=== PATIENT | female | born 1995 | race Caucasian/White ===

== ENCOUNTER 2018-10-24 05:26 | Inpatient (IN) | payer MEDICAID ==
--- NOTE | 2018-10-23 20:20 | PDGENHP ---
History and Physical - Chief Complaint LEFT HIP PAIN - History of Present Illness Diagnosis: 1. 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 ~Jose Denjoys hiking, running. Charla's~left~hip pain started 2 years ago, with~no~recalled trauma or injury, and with~little~previous complaints~(4 years ago).~Jose Dhas~a known history of hip dysplasia. She was referred by Dr. Fernández's office for further evaluation and treatment. She has a previous L hip surgical history~(3 previous procedures)~for a bone cyst and compression screw fixation ([id number] - Dr. Shaggy Ballesteros at [facility]). Presentation today is of~anterior~left~hip pain deep inside. ~The hip~does~wake her~at night and~does~click and catch on~her. Sitting~can be uncomfortable~for her.~Jose Ddoes~report suffering from lower back pain episodes, which started after her hip symptoms.~ Jose Dhas~participated in physical therapy (x6-8 months)~and has~tried other conservative measures including dry needling, chiropractor.~She~has not~ received sufficient symptomatic improvement. Jose Dhas~utilized medication for pain management, including NSAID and OTC acetaminophen.~Jose Dhas used medication daily for 2 years.~ Jose Ddenies issues with the right~hip, but does have popping. Jose Dunderstands that~tara~has a hip and pelvis problem which should be researched and wishes to get a better understanding of~her~hip status, followed by an establishment of a treatment strategy, hoping~tara~would be able to get back to~her~well being active life. History: Past medical history:~~ Patient~~has a past medical history of Asthma and Bleeding disorder (HC code).~~ Von Willebrand's (possible, unsure if confirmed diagnosis, doesn't think she required any treatment with other surgeries) Relevant familial history:~Mother - von Willebrands Past surgical history:~ No. Surgery Anesthesia Year Outcome 1 L hip~hardware removal General 2016 No complications 2 Revision curettage, grafting, fixation General ?2015 No complications 3 L hip bone cyst curettage, grafting, fixation General 2014 No complications Jose Ddenies problematic issues with general anesthesia in the past. I have reviewed, verified and agree with the past medical, surgical, family and social history. Current Medications:~has a current medication list which includes the following prescription(s): norgestimate-ethinyl estradiol and albuterol. ALLERGIES:~has No Known Allergies. Objective: Physical Examination: Jose Dis 5~feet~5~inches tall and weighs~150~Lbs. Shoe size~8.5. Jose Dis AAO x3; she~is well-nourished, in NAD. Skin is warm and dry. ~ Breathing is non-labored. ~CV with RRR by pulse. Abdomen is soft, NTND. Currently,~she~walks with a~normal~gait. Trendelenburg sign is~negative~and proprioception~is normal,~both~sides. She~presents~with mild~signs of joint laxity.~Beightons Score:~3 (elbows, L pinky) Lower spine examination is~negative~for sciatic or femoral nerve irritation with negative~SLR &~femoral stretch tests. Range of motion of the spine is normal~for flexion, extension, and rotations,~with~minimal~associated pain~in extension. Strength, Sensation and pulses are~normal -~bilaterally Ankles and knees exams are~normal~and~no~mal-alignment is evident.~ She~has~no leg length discrepancy. Thigh circumference is~symmetric~with no evidence for muscle atrophy~on both~ sides. Hip ROM (degrees): FL ER At 90~hip FL IR At 90~hip FL AB AD EX IR Neutral hip ER Neutral hip R 105 50 15 45 5 5 45 40 L 105(pain) 50 15(pain) 45 5 5 45 40 Specific hip and pelvis tests: Impingement Test SHANIA Roll Add. Longus R Negative Negative Negative Negative L +++ +++ +++ ++ Glut. Med ITB Posterior Imp R Negative 5/5 strength Negative 5/5 strength Negative L Negative 5/5 strength Negative 5/5 strength +++~(anterior) Squeeze test measured~normal Bony Symphysis pubis is~pain free~to touch while concentric activity of the rectus abdominis, does not~produce pain at its insertion. Ilio Psos specific tests are~positive for pain during cycling for~the left hip~ and remarkable for non painful snap HF has~pain~the left hip. Mild anterior~capsule tenderness left hip Greater trochanteric burse is~pain free~on both hips. Piriformis tests: FAIR is~negative,~with no~local signs of neuritis related to sciatic nerve. SIJs examination is~mildly painful L sides~with~normal~SHANIA in relation and local tenderness. Hamstrings tests are~negative~tendinopathy both hips. On a daily basis, the following percentages reflect~Charla's overall total pain : Deep hip:~80% Adductor tendons:~20% Imaging: Radiology studies which I~have personally reviewed, analyzed and measured are below: XR: AP of the hip and pelvis: Performed in a~good~technique Coccyx to pubic symphysis distance~0.9~cm. 0~degrees caudal/cephal [place]~Lines are preserved. Minimal~Pathological signs are seen in the Symphysis Pubis.~ No~Pathological signs are seen at the Ischial~tuberosity. ~ Specific measurements show: NSA~ LCE Sourcil~Angle Sharp's angle Lat. Cam Lat. Pincer C.Over~sign Head~Coverage % ATDmm R 129 19 8 43 Neg Neg Neg 74% 23.6 L 128 19 10 48 Neg Neg Neg 66% 25.0 Pos. wall sign ISS NAD ~~Dysplasia Comments R Negative Negative 16.0~mm ++ L Negative Negative 15.0~mm +++ Compression screw in femoral head/neck Sclerosis Sup. Lat. OA Cysts Joint Space-WBZ Joint Space-Medial R Negative Negative Negative 4.2~mm 4.1~mm L Negative Negative Negative 3.9~mm 3.2~mm X Table lateral: Anterior cam lesion is~seen~on both hips. Alpha Angle: ~ Right~60~degrees Left~63~degrees CT / 3D:~ 04/07/18 Right hip: Lateral center edge angle: 20 degrees Anterior center edge angle: 44 degrees Equatorial acetabular version angle: 21 degrees anteverted. Cranial acetabular version angle: 13 degrees anteverted. Femoral neck shaft angle: 131 degrees Femoral neck version angle: Anteverted 3 degrees Femoral shaft torsion angle: +19 degrees Left hip: Lateral center edge angle: 22 degrees Anterior center edge angle: 44 degrees Equatorial acetabular version angle: 22 degrees anteverted. Cranial acetabular version angle: 15 degrees anteverted. Femoral neck shaft angle: 138 degrees Femoral neck version angle: Retroverted 5 degrees Femoral shaft torsion angle: +5 degrees Impression and plan:~ Charla~is a~22 y.o.~active female~suffering from~Left~Hip Dyplasia~and~ Femoroacetabular impingement (QUINTEN) Cam type~causing significant disability to~ her~and altering~her~sport and life activities. Physical examination, imaging, and~her~story correspond with the diagnosis mentioned above. I explained that hip dysplasia is a condition wherein the hip joint has excessive play~and instability due to a variety of factors, including the depth and adequacy of the socket, the orientation of the femur bone, and ligament laxity around the hip joint. Dysplasia ranges in severity from borderline to stiven, with treatment options being specific to the specific nature of the problem. Left untreated, the instability in the hip joint can cause progressive tearing of the labrum and deterioration of the surface cartilage, ultimately resulting in progressive osteoarthritis of the hip. I explained that femoroacetabular impingement (QUINTEN - Cam type) arises due to a bony or soft tissue conflict between the femur (ball) and acetabulum (socket) caused by an abnormality in the shape of the femoral head and neck. Over time, repetitive impingement can result in damage to the labrum and adjacent surface cartilage within the socket, ultimately giving rise to progressive osteoarthritis of the hip. I explained that although a labral tear can be a source of pain, it is rarely the root of the problem and typically occurs secondary to an underlying abnormality in the shape and mechanics of the hip joint. I reviewed conservative treatment options for Dysplasia and QUINTEN including activity modification to avoid positions of impingement or instability, physical therapy, non-steroidal anti-inflammatory medications, and various injections (corticosteroid and PRP) aimed at reducing inflammation in the hip joint or/and preventing dynamic instability and impingement. PRP injections may promote healing and reduce symptoms in certain cases but it will not repair chronically damaged tissue. Although these measures may help to buy time~and reduce current level of symptoms, they are not a definitive solution to the problem given the underlying abnormality in the shape of the hip joint. Patients who have failed conservative management and continue to experience symptoms are candidates for definitive surgical treatment, which may consist of hip arthroscopy alone or in combination with more invasive bony realignment procedures of the hip socket and/or femur called periacetabular osteotomy (SHAKIR) or derotational femoral osteotomy (DFO). Hip arthroscopy typically includes treating the labrum with either repair or reconstruction of the torn labrum; as well as addressing the underlying abnormalities by restoring the normal shape to the hip joint. If the cartilage is damaged a Microfracture surgical procedure may also be necessary to help stimulate the growth of fibrocartilage. If a patient requires a labral reconstruction or a Microfracture, the initial rehabilitation from the surgery may take longer, but the ferry terminal agent results are typically favorable. I reviewed the technical aspects of periacetabular osteotomy (SHAKIR) including risks, benefits, and expected course of recovery. Charla understands that SHAKIR is an inpatient procedure carried out through two medium sized incisions on the front and back of the hip joint. The hip socket is cut, realigned, and stabilized with 2 3 internal screws. Risks include infection, bleeding, injury to nearby nerves or vessels, stiffness, persistent pain, instability, failure of bony healing, implant related complications, and venous thromboembolic disease. Rarely, revision surgery may be required to address these problems. Risks, potential complications, side effects and recovery from surgical procedure were discussed in length. We explained how this surgery is an open procedure, and though patients tend to do well in the long-term, it involves significant pain in the first 2-4 weeks post-op and a rather lengthy rehab. Overall recovery takes approximately 6 12 months depending on the extent of damage and degree of repair. Charla understands that she will undergo hip arthroscopy 1 week prior to the SHAKIR to address damage inside the hip joint. Charla understands that hip arthroscopy and SHAKIR are two separate procedures that are best performed one week apart, with the arthroscopy commencing first to "tighten up" any pathology evident in the hip joint (labral repair, etc.) and the SHAKIR open procedure occurring 7-10 days later to realign the acetabulum. Jose Dwill review the info presented. In order to better evaluate the soft tissues and cartilage of the hip joint, I will order an MRI scan~with metal artifact reduction sequence.~ Jose Dis going to contact us after completing her~imaging studies. Jose Dwill talk with our medical surgical tech about possible surgery dates, understanding that she should coordinate hip arthroscopy with Dr. Fernández one week prior to her SHAKIR with us. Jose Dis happy with this plan. I have also supplied~her~with handouts, outlining the expected surgical treatment and rehab involved. I wish~CharlaKaylaall the best, ~~ Lesley Granados MD History Information - Allergies/Home Medication List Allergies/Adverse Reactions: No Known Allergies Allergy (Verified 10/13/18 11:16) Home Medications: Acetaminophen [Tylenol 325mg (*)] 325 mg PO Q6 PRN 10/13/18 [Last Taken Unknown] Albuterol [Proventil Inhaler HFA (*)] 1 - 2 puffs IH Q4H PRN 10/13/18 [Last Taken Unknown] Etonogestrel [Nexplanon] 68 mg SQ .[id number] 10/13/18 [Last Taken Unknown] Herbals/Supplements -Info Only 1 ea PO DAILY 10/13/18 [Last Taken Unknown] I have personally reviewed and updated: medical history - Social History Smoking Status: Never smoked Review of Systems Review of Systems: Physical Exam Physical Exam:
[2018-10-24] MEDS ORDERED: ACETAMINOPHEN 500 MG TAB PO ONE (05:55)
[2018-10-24] MEDS ORDERED: TRANEXAMIC ACID 1,000 MG in NS 100 ML IV ONE (05:55)
[2018-10-24] MEDS ORDERED: SCOPOLAMINE HYDROBROMIDE 1 MG/3 DAYS PATCH TD ONE (05:55)
[2018-10-24] MEDS ORDERED: ceFAZolin 2 GM/DEXTROSE 100 ML IV ONE (05:55)
[2018-10-24] MEDS ORDERED: PREGABALIN 150 MG CAP PO ONE (05:55)
[2018-10-24] MEDS ORDERED: MIDAZOLAM 2 MG/2 ML VIAL IVP ONE (06:23)
[2018-10-24] MEDS ORDERED: morphINE PF 5 MG/10 ML INJ ONE (06:27)
[2018-10-24] MEDS ORDERED: DEXAMETHASONE 4 MG/ML VIAL ONE (06:28)
[2018-10-24] MEDS ORDERED: PROPOFOL 200 MG/20 ML VIAL ONE ×3 (06:28→09:29)
[2018-10-24] MEDS ORDERED: LIDOCAINE 2% 2 ML INJ ONE (06:28)
[2018-10-24] MEDS ORDERED: ROCURONIUM 50 MG/5 ML VIAL ONE (06:28)
[2018-10-24] MEDS ORDERED: ONDANSETRON 4 MG/2 ML VIAL ONE (06:28)
[2018-10-24] MEDS ORDERED: fentaNYL 100 MCG/2 ML INJ ONE ×3 (06:29→12:59)
--- NOTE | 2018-10-24 06:52 | PDANEPAE ---
ANE Past Medical History - Cardiovascular History Hx Hypertension: No Hx Arrhythmias: No Hx Chest Pain: No Hx Coronary Artery / Peripheral Vascular Disease: No Hx CHF / Valvular Disease: No Hx Palpitations: No - Pulmonary History Hx COPD: No Hx Asthma/Reactive Airway Disease: No Hx Recent Upper Respiratory Infection: No Hx Oxygen in Use at Home: No Hx Sleep Apnea: No Sleep Apnea Screening Result - Last Documented: Negative - Neurologic History Hx Cerebrovascular Accident: No Hx Seizures: No Hx Dementia: No - Endocrine History Hx Diabetes: No - Renal History Hx Renal Disorders: No - Liver History Hx Hepatic Disorders: No - Neurological & Psychiatric Hx Hx Neurological and Psychiatric Disorders: No - Cancer History Hx Cancer: No - Congenital Disorder History Hx Congenital Disorders: No - GI History Hx Gastrointestinal Disorders: No - Other Health History Other Health History: wears glasses - Chronic Pain History Chronic Pain: Yes (left hip) - Surgical History Prior Surgeries: bone cyst removed from left femoral head x2. hardware removed except for 1 bolt ANE Review of Systems Review of Systems: - Exercise capacity METS (RN): 4 METS ANE Patient History - Allergies Allergies/Adverse Reactions: No Known Allergies Allergy (Verified 10/13/18 11:16) - Home Medications Home Medications: Acetaminophen [Tylenol 325mg (*)] 325 mg PO Q6 PRN 10/13/18 [Last Taken 10/23/18 ] Albuterol [Proventil Inhaler HFA (*)] 1 - 2 puffs IH Q4H PRN 10/13/18 [Last Taken 07/26/18] Etonogestrel [Nexplanon] 68 mg SQ .[id number] 10/13/18 [Last Taken 02/01/17] Herbals/Supplements -Info Only 1 ea PO DAILY 10/13/18 [Last Taken 10/10/18] - NPO status NPO Since - Liquids (Date): 10/23/18 NPO Since - Liquids (Time): 22:30 NPO Since - Solids (Date): 10/24/18 NPO Since - Solids (Time): 18:30 - Smoking Hx Smoking Status: Never smoked - Family Anes Hx Family Hx Anesthesia Complications: none ANE Labs/Vital Signs - Vital Signs Blood Pressure: 127/76 Heart Rate: 97 Respiratory Rate: 20 O2 Sat (%): 96 Height: 165.1 cm Weight: 72.575 kg ANE Physical Exam - Airway Neck exam: FROM Mallampati Score: Class 2 Mouth exam: normal dental/mouth exam - Pulmonary Pulmonary: no respiratory distress, no rales or rhonchi, clear to auscultation - Cardiovascular Cardiovascular: regular rate and rhythym, no murmur, rub, or gallop - ASA Status ASA Status: I ANE Anesthesia Plan Anesthesia Plan: general endotracheal anesthesia, spinal (Duramorph Spinal for POPC)
--- NOTE | 2018-10-24 06:53 | POSTANESTH ---
Post Anesthetic Evaluation Cardiovascular Status: Normal, Stable Respiratory Status: Normal, Stable Level of Consciousness/Mental Status: Can Participate in Eval Pain Control: Adequate, Prn Tx Ordered Nausea/Vomiting Control: Adequate, Prn Tx Ordered Complications Possibly Related to Anesthesia: None Noted
[2018-10-24] MEDS ORDERED: CITRATE DEXTROSE SOLN 500 ML BAG ONE (07:03)
[2018-10-24] MEDS ORDERED: NALOXONE HCL 0.4 MG/ML INJ IVP PRN ×3 (07:56→12:24)
[2018-10-24] MEDS ORDERED: PHENYLEPHRINE HCL 100 MCG/ML SYR ONE ×3 (08:02→11:11)
[2018-10-24] MEDS ORDERED: ACETAMINOPHEN 500 MG TAB PO PRN (08:46)
[2018-10-24] MEDS ORDERED: PROMETHAZINE HCL 25 MG/ML INJ IVP PRN (08:46)
[2018-10-24] MEDS ORDERED: LR 500 ML IV PRN (08:46)
[2018-10-24] MEDS ORDERED: NS 500 ML IV PRN (08:46)
[2018-10-24] MEDS ORDERED: oxyCODONE IR 5 MG TAB PO PRN (08:46)
[2018-10-24] MEDS ORDERED: MEPERIDINE 25 MG/0.5 ML AMP IVP PRN (08:46)
[2018-10-24] MEDS ORDERED: ALBUTEROL 3 ML DEYVIAL IH PRN (08:46)
[2018-10-24] MEDS ORDERED: METOCLOPRAMIDE 10 MG/2 ML VIAL IVP PRN (08:46)
[2018-10-24] MEDS ORDERED: fentaNYL 100 MCG/2 ML INJ IVP PRN (08:46)
[2018-10-24] MEDS ORDERED: ONDANSETRON 4 MG/2 ML VIAL IVP PRN ×2 (08:46→12:23)
[2018-10-24] MEDS ORDERED: HYDROmorphONE/DILAUDID 1 MG/ML INJ IVP PRN (08:46)
[2018-10-24] MEDS ORDERED: PHENYLEPHRINE HCL 100 MCG/ML SYR IVP PRN (08:46)
[2018-10-24] MEDS ORDERED: ceFAZolin 1 GM VIAL ONE ×2 (10:16→10:17)
[2018-10-24] MEDS ORDERED: LACTULOSE 20 GM/30 ML UDCUP PO PRN (12:23)
[2018-10-24] MEDS ORDERED: MAGNESIUM HYDROXIDE 30 ML UDCUP PO PRN (12:23)
[2018-10-24] MEDS ORDERED: ONDANSETRON DISINTEGRATING 4 MG TAB PO PRN (12:23)
[2018-10-24] MEDS ORDERED: ACETAMINOPHEN 325 MG TAB PO PRN (12:23)
[2018-10-24] MEDS ORDERED: BISACODYL 10 MG SUPP PR PRN (12:23)
[2018-10-24] MEDS ORDERED: POLYETHYLENE GLYCOL 3350 17 GM PKT PO PRN (12:23)
[2018-10-24] MEDS ORDERED: diphenhydrAMINE 25 MG CAP PO PRN (12:24)
[2018-10-24] MEDS ORDERED: oxyCODONE IR 15 MG TAB PO PRN (12:25)
[2018-10-24] MEDS ORDERED: ALBUTEROL 60 PUFFS/8 GM MDI IH PRN (12:26)
[2018-10-24] MEDS ORDERED: ACETAMINOPHEN 500 MG TAB ONE (12:45)
[2018-10-24] MEDS ORDERED: oxyCODONE IR 5 MG TAB ONE (12:45)
[2018-10-24] MEDS: oxyCODONE IR 5 MG TAB PO SCH ×3 (15:21→21:43)
[2018-10-24] MEDS: NAPROXEN SODIUM 220 MG TAB PO SCH ×2 (16:13→21:42)
--- NOTE | 2018-10-24 18:10 | PDMN ---
Medical Necessity Medical necessity: Pt meets IP criteria per PA & MCG; est los >2 mn for s/p L Periacetabular Osteotomy (cpt 51465); admit for further monitoring, Dilaudid HOLE FILLER , Hospitalist consult & therapies; per H&P & order 10/24/18
--- NOTE | 2018-10-24 19:30 | SUROPNOTE ---
MELYSSA Operative Report - Surgery Surgery was performed at [facility] on~10/24/18~ Diagnosis:~Left 1. Hip Acetabular Dysplasia ~ Operation: Left~Chiqui Acetabular Osteotomy (SHAKIR) Surgeon: Destin Jacobo MD Mortgage Processing Clerk:~~Lesley thakkar MD Anesthetic: General + spinal Procedure: General anesthetic. Antibiotics given. Cell saver in use. Fluoroscopy. Phase 1: Position lateral, diagonal skin incision between ischial tuberosity and greater trochanter as for posterior hip approach. Blunt split of glut max fibers. Identification of fat pad overlying sciatic nerve. Exposure of sciatic nerve under fat pad, gently retracting it away-medially to ischial tuberosity. Exposure of subcotoloid fossa proximal to short rotators. UsingPrecision saw, osteotomy of subcotoloid [id number] mm short of (lateral to) thesciatic notch. Closure of lateral cut. Patient is turned supine. Phase 2: Skin incision just distal to ASIS. Using diathermy the iliac spine was exposed and inguinal ligament + Sartorious were retracted medially, taking the LFCN with them, protecting it. Inner ilium was dissected from iliacus muscle bluntly , with a cob and swab. Dissection continued towards lateral superior ramus pubis. Using fluoroscopy an osteotomy of lateral superior ramus, just medial to tear drop, was performed with~curved fish mouth osteotome. Phase 3: Osteotomy lines of the ilium were marked with diathermy as pre planned according to XR/CT and expected correction of acatabulum. 2 Shanz screws were drilled into central acetabular fragment, corresponding with planned correction angles, in order to mobilize central acetabular fragment after osteotomy is complete. ~Iliac osteotomy was performed with reciprocating saw and the main acetabular fragment was moved to realign weight bearing position. After confirmation of correction using fluoroscopy in AP and false profile planes, the fragment was fixed with 2 -~5.5mm~~full threaded~screws~and 1 -~4mm~~full threaded~screw. Inguinal ligament and Sartorious were attached back to ASIS through drill holes. Incision was closed according to soft tissue layers. Skin was closed with~subdermal Monocryl. Final fluoro shots were obtained to confirm position/correction. After surgery~Charla~moved both lower limbs and had no NV motor compromise. Specimen - none Bleeding -~500ml Complication - none Evaluation under anesthesia: IR at 90 degrees hip flexion prior to SHAKIR was~3-5~degrees and after SHAKIR was 0-3~ degrees. Bleeding:~500~cc into cell-saver, 270~of blood products were returned to patient. Post op instructions: 1.~toe touch till first post op visit~weight bearing crutches for 6 weeks 2. Continuous SC 3. Aspirin 81 mg X1 day starting POD1 4. Avoid hip flexion past 90 and hip External rotation. 5. PT according to my recommendations at follow up visit Kind regards, Dr. Destin Jacobo
[2018-10-24] MEDS: SENNOSIDES/DOCUSATE SODIUM TAB PO SCH (21:43)
[2018-10-24] MEDS: HYDROmorphONE/DILAUDID 6 MG/30 ML PCA IV PRN (22:55)
[2018-10-24] MEDS: NS 1,000 ML IV SCH (22:55)
[2018-10-25] MEDS: oxyCODONE IR 5 MG TAB PO SCH ×6 (01:15→21:09)
[2018-10-25] MEDS: NS 1,000 ML IV SCH (08:23)
[2018-10-25] MEDS: NAPROXEN SODIUM 220 MG TAB PO SCH ×3 (09:52→21:10)
[2018-10-25] MEDS: SENNOSIDES/DOCUSATE SODIUM TAB PO SCH ×2 (09:52→21:11)
[2018-10-25] MEDS: PANTOPRAZOLE SODIUM 40 MG TAB PO SCH (09:52)
--- NOTE | 2018-10-25 10:32 | GCON ---
[f rep st] CONSULTATION REASON FOR CONSULTATION: Medical management. PHYSICAL REQUESTING CONSULTATION: Destin Jacobo MD HISTORY OF PRESENT ILLNESS: The patient is a delightful 23-year-old female who has had left hip pain for approximately 2 years. She was very active in sports and played lacrosse in high school. Her initial issues started when she started having increased pain in her left groin area while playing lacrosse. She did physical therapy for several weeks without any improvement. It was noted that she had a large bone cyst in her left femur. She ended up having surgery and had a bone graft. The cyst came back. She subsequently has been having ongoing pain due to this. She has known a bilateral hip dysplasia. She is status post a left periacetabular osteotomy on October 24, 2008. During my interview, her pain is well managed. She is feeling overall well. She denies any chest pain, shortness of breath. No issues with weight loss or weight gain. PAST MEDICAL HISTORY: Asthma. FAMILY HISTORY: Her mother, brother, and grandmother have von Willebrand's. She herself does not. Her father is healthy. 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 Her partner is at the bedside, and she has been a relationship with him for the past 3 years. She does not smoke. She does not drink alcohol. ALLERGIES: No known allergies. HOME MEDICATIONS: Include Nexplanon 68 mg subcu every 3 years, albuterol inhaler 1-2 puffs q.4 hours p.r.n., and Tylenol 325 mg q.6 hours p.r.n. REVIEW OF SYSTEMS: A 10-point review of system was performed and was negative, other than pertinent positives in HPI and past medical history. PHYSICAL EXAM: GENERAL: The patient is a 23-year-old female who appears to be in good health. VITAL SIGNS: Blood pressure is 109/54, heart rate of 84, respiratory rate of 16, O2 sats on room air 96%, temperature 36.9 Celsius. EYES : Pupils are equal and reactive. EOMs are intact. No conjunctival injection noted. ENT: She has normal ears. Hearing intact. Oral airway is moist. NECK : Trachea is midline. CARDIOVASCULAR: Regular rate and rhythm. CHEST/LUNGS: Normal respiratory effort. Clear, without wheezing, rales, rhonchi. ABDOMEN: Soft, nontender. SKIN: No rashes noted. She has minimal swelling at the left hip area. MUSCULOSKELETAL: I was able to evaluate her getting out of bed with this physical therapy. She did quite well, ambulating in the room. PSYCHIATRIC : She is alert and oriented with normal mood and affect. Normal judgment, insight, and normal memory. LABS: Reviewed. A CBC shows a white blood cell count of , hemoglobin 11.6, hematocrit of 35.4, platelet count of 270. Chemistry: Sodium is 138, potassium 4.2, chloride of 105, CO2 of 25, BUN 10, creatinine of 0.6, glucose of 119, calcium of 8.3. ASSESSMENT/PLAN: 1. Leukocytosis: This is very mild. This is likely stress-induced from recent surgery. 2. Anemia: Will get repeat labs in the morning. 3. Hyperglycemia secondary to recent surgery. 4. Hip dysplasia, status post a left periacetabular osteotomy, doing extremely well with surgery. 5. Deep venous thrombosis prophylaxis: Aspirin therapy. Thank you for this consultation. The hospitalist will continue to follow the patient during her stay. /[id number]/MODL MTDD
--- NOTE | 2018-10-25 11:47 | SOAPPROG ---
SOAP Progress Note Assessment/Plan: Assessment: Pain in Hip S/P SHAKIR surgery Plan: 10/25/18 11:44 Subjective: Patient experiencing some increased pain in hip today. Likely due to duramorph spinal wearing off. She experienced some mild nausea and itching but no pain in her back at the insertion site. Objective: Pain 5/10 which increases with movement. Vital Signs Temp Pulse Resp BP Pulse Ox 36.7 C 84 16 115/56 L 95 10/25/18 10:00 10/25/18 10:00 10/25/18 10:00 10/25/18 10:00 10/25/18 10:00 Laboratory Results 10/25/18 04:39 10/25/18 04:39 10/24/18 10/25/18 10/26/18 05:59 05:59 05:59 Intake Total 3800 Output Total 2350 750 Balance 1450 -750 - Time Spent With Patient Time Spent With Patient: 15 minutes ICD10 Worksheet Patient Problems: Problems Problem Status Onset Hip pain Acute - ICD10 Problem Qualifiers (1) Hip pain Qualifiers: Laterality: unspecified laterality Qualified Code(s): M25.559 - Pain in unspecified hip
[2018-10-25] MEDS: oxyCODONE IR 5 MG TAB PO PRN (12:20)
[2018-10-25] MEDS: DIAZEPAM 2 MG TAB PO PRN ×2 (12:21→19:08)
--- NOTE | 2018-10-25 13:36 | ASMTCMCOM ---
CM Note CM Note Notes: Pt had planned surgery for dysplasia. Pt resides with parents. PT/OT rec home. Anticipate pt will d/c when medically stable and follow MD rec for outpatient PT. No CM d/c needs identified. CM available for changes/needs. D/c plan of care: Independent Date Signed: 10/25/2018 01:36 PM Electronically Signed By:ELENO Hutchinson
--- NOTE | 2018-10-25 14:18 | SOAPPROG ---
SOAP Progress Note Assessment/Plan: Assessment: 23 yo F POD#1 s/p L SHAKIR, doing well on TOOL MAINTENANCE TECHNICIAN. Plan: Transition TOOL MAINTENANCE TECHNICIAN to PO pain meds when able NWB LLE with crutches, PT/OT ASA, SCDs for DVT ppx AP pelvis XR POD#3, needs to be cleared by Dr. Jacobo prior to d/c (can be done POD#2 if stable for d/c) 10/25/18 14:16 Subjective: Pt doing well. Doshi out. Some pain, but tolerable on TOOL MAINTENANCE TECHNICIAN. No CP/SOB. Objective: Vital Signs Temp Pulse Resp BP Pulse Ox 36.7 C 87 16 110/60 94 10/25/18 11:55 10/25/18 11:55 10/25/18 11:55 10/25/18 11:55 10/25/18 11:55 Laboratory Results 10/25/18 04:39 10/25/18 04:39 10/24/18 10/25/18 10/26/18 05:59 05:59 05:59 Intake Total 3800 Output Total 2350 750 Balance 1450 -750 Gen: NAD LLE dressings c/d/i Lateral thigh numbness 0/10 in LFCN distribution 5/5 TA, GSC, EHL SILT throughout foot ICD10 Worksheet Patient Problems: Problems Problem Status Onset Hip pain Acute
[2018-10-26] MEDS: oxyCODONE IR 5 MG TAB PO SCH ×4 (01:43→14:10)
[2018-10-26] MEDS: NS 1,000 ML IV SCH (02:13)
[2018-10-26] MEDS: HYDROmorphONE/DILAUDID 6 MG/30 ML PCA IV PRN (07:51)
[2018-10-26] MEDS: DIAZEPAM 2 MG TAB PO PRN ×2 (07:56→14:12)
[2018-10-26] MEDS: PANTOPRAZOLE SODIUM 40 MG TAB PO SCH (08:44)
[2018-10-26] MEDS: SENNOSIDES/DOCUSATE SODIUM TAB PO SCH (08:44)
[2018-10-26] MEDS: NAPROXEN SODIUM 220 MG TAB PO SCH (08:44)
[2018-10-26] MEDS: oxyCODONE IR 5 MG TAB PO PRN (08:49)
[2018-10-26 12:08] VITALS: BP 124/64
[2018-10-26] MEDS ORDERED: ASPIRIN EC 81 MG TAB PO SCH (12:23)
--- NOTE | 2018-10-26 13:22 | HOSPPROG ---
Hospitalist Progress Note Assessment/Plan: #Hip dysplasia: POD#2 POA #Acute pain: wean off ASSISTANT LIBRARIAN as tolerates. Valium most helpful. -bowel regimen -no e/o opioid toxicity #ABLA: expected with procedure #Asthma: no e/o exacerbation #DVT: ASA, SCDs Please call if questions Subjective: pain 8/10 today, shooting down leg Objective: Vital Signs Temp Pulse Resp BP Pulse Ox 36.8 C 97 16 124/64 H 94 10/26/18 12:00 10/26/18 12:00 10/26/18 12:00 10/26/18 12:00 10/26/18 12:00 Laboratory Results 10/26/18 04:17 10/25/18 04:39 10/25/18 10/26/18 10/27/18 05:59 05:59 05:59 Intake Total 3800 1562 Output Total 2350 750 Balance 1450 -750 1562 - Time Spent With Patient Time Spent with Patient: greater than 35 minutes Time Spent with Patient: Greater than 35 minutes spent on this patients care, greater than 50% of time spent counseling, educating, and coordinating care regarding the above mentioned plan. - Physical Exam Constitutional: uncomfortable Ears, Nose, Mouth, Throat: moist mucous membranes Respiratory: no respiratory distress Gastrointestinal: normoactive bowel sounds Musculoskeletal: other (left thight swollen. Incision sites dressed, CDI) Neurologic: AAOx3, CN II-XII Intact Psychiatric: interacting appropriately ICD10 Worksheet Patient Problems: Problems Problem Status Onset Hip pain Acute
--- NOTE | 2018-10-26 18:38 | ASMTLACE ---
BILLYE Length of stay for Answers: 2 days current admission Acuity / Level of Answers: Yes Care: Did the patient have an inpatient admission? Comorbidities - select Answers: Opioid dependence all that apply / Chronic pain # of Emergency department Answers: 0 visits in the last 6 months Score: 9 Date Signed: 10/26/2018 06:37 PM Electronically Signed By:Fanny Maya RN
--- NOTE | 2018-10-26 18:43 | ASDISCHSUM ---
Discharge Information Plan Status:Home with No Needs Medically Cleared to Leave:10/26/2018 Discharge Date:10/26/2018 04:25 PM CM D/C Disposition:Home, Routine, Self-Care ADT D/C Disposition:Home, Routine, Self-Care Projected Discharge Date:10/26/2018 04:25 PM Transportation at D/C:Family Discharge Delay Reason: Follow-Up Date:10/26/2018 04:25 PM Discharge Slot:2 - 12:01 pm - 18:00 pm Final Diagnosis:Hip dysplasia, acute pain, asthma Placement Information Patient Contact Information Contact Name:OTIS Relationship:Father Address: Work Phone: City: [facility] Phone: State/[place] Code: Email: Financial Information Financial Class:Medicaid [place] Desc[place] [place] Plan Number:[id number] Secondary Plan Desc: Secondary Plan Number: Assessment Information LACE LACE Length of stay for Answers: 2 days current admission Acuity / Level of Answers: Yes Care: Did the patient have an inpatient admission? Comorbidities - select Answers: Opioid dependence all that apply / Chronic pain # of Emergency department Answers: 0 visits in the last 6 months Score: 9 Date Signed: 10/26/2018 06:37 PM Electronically Signed By:Fanny Maya RN [facility] CM Progress Note CM Note CM Note Notes: Pt had planned surgery for dysplasia. Pt resides with parents. PT/OT rec home. Anticipate pt will d/c when medically stable and follow MD rec for outpatient PT. No CM d/c needs identified. CM available for changes/needs. D/c plan of care: Independent Date Signed: 10/25/2018 01:36 PM Electronically Signed By:ELENO Hutchinson Case Management Discharge Plan Note Case Management Discharge Discharge Order Complete? Answers: Yes Patient to Obtain Answers: via Family Medications Transportation Arranged Answers: Family/Friends Transport will Pick (Date 10/26/2018 12:00 AM & Time) EMTALA Complete Answers: No Notes: N/A Case Management Transport Answers: No Notes: N/A Form Complete Faxed Final Orders Answers: No Notes: N/A Agency/Facility Transfer Answers: No Notes: N/A Report Printed & Faxed to Receiving Agency Family Notified Answers: Yes Notes: Parents at bedside Discharge Comments Notes: Spoke with NANO Gray. Late afternoon discharge order received. Pt to discharge home independently with family support and no identified needs. No IM signed, not applicable. Pt to follow up as directed. CM available for any further issues or concerns. Discharge Plan: Home independently with family support Date Signed: 10/26/2018 06:41 PM Electronically Signed By:Fanny Maya RN Intervention Information
[2020-02-02] MEDS ORDERED: NON-FORMULARY NEW DRUG (Etonogestrel [Nexplanon] 68 MG) SQ SCH (12:30)
== END 2018-10-26 16:25 | disposition home or self-care (01) | DRG 320 ==
LOC: F3N 05:26
PROVIDERS: ADMIT Orthopaedic Surgery Sports Medicine; ATTEND Orthopaedic Surgery Sports Medicine
PROC: 0QS504Z Reposition Left Acetabulum with Internal Fixation Device, Open Approach (ICD-10-PCS; principal; 2018-10-24 07:15)
DX: Q65.89 Other specified congenital deformities of hip (principal); D62 Acute posthemorrhagic anemia; D72.829 Elevated white blood cell count, unspecified; R73.9 Hyperglycemia, unspecified; J45.909 Unspecified asthma, uncomplicated
CPT/HCPCS: 97116-GP; 97161-GP; 97165-GO; 97530-GP; 97535-GO; C1713; J0690; J1100; J1170; J2250; J2274; J2370; J2405; J2704; J3010